=== PATIENT | female | born 1985 | race Caucasian/White ===

== ENCOUNTER 2021-07-02 07:26 | Emergency (ER) | payer BC ==
[~2021-07-02] VITALS: Ht 167.6 cm; Wt 95.4 kg
[2021-07-02] MEDS ORDERED: LEVOTHYROXINE50 MCG PO (08:04)
[2021-07-02] MEDS ORDERED: FAMOTIDINE 20 MG/2 ML VIAL IV ONE ×2 (08:08→08:57)
[2021-07-02] MEDS ORDERED: KETOROLAC TROMETHAMINE 30 MG/ML VIAL IV ONE (08:08)
[2021-07-02] MEDS ORDERED: KETOROLAC TROMETHAMINE 30 MG/ML VIAL ONE (08:57)
[2021-07-02] MEDS ORDERED: BACTRIM DS TAB1 EACH PO (09:39)
== END 2021-07-02 09:51 | disposition home or self-care (01) ==
LOC: FSED 08:00
DX: R07.9 Chest pain, unspecified (principal); N39.0 Urinary tract infection, site not specified; E03.9 Hypothyroidism, unspecified
CPT/HCPCS: 71046; 80053; 81003; 81025; 82553; 84484; 85025; 93005; 96374; 96375; 99284; J1885

== ENCOUNTER 2025-05-18 15:11 | Emergency (ER) | payer BC ==
[~2025-05-18] VITALS: Ht 167.6 cm; Wt 104.0 kg
[~2025-05-18 15:11] MED LIST: BACTRIM DS TAB1 EACH PO; LEVOTHYROXINE50 MCG PO
[2025-05-18 15:20] VITALS: TEMP 98.8
[2025-05-18] MEDS ORDERED: TYLENOL325 MG PO (16:36)
[2025-05-18] MEDS ORDERED: PREDNISONE20 MG PO (16:36)
[2025-05-18 16:39] VITALS: PULSE 80; RESP 18; O2SAT 96
== END 2025-05-18 16:41 | disposition home or self-care (01) ==
LOC: FSED 15:14
DX: M79.602 Pain in left arm (principal); R07.89 Other chest pain; E03.9 Hypothyroidism, unspecified; Z98.84 Bariatric surgery status
CPT/HCPCS: 71046; 80053; 81003; 81025; 84484; 85025; 85379; 93005; 99284